=== PATIENT | male | born 1955 | race Caucasian/White ===

== ENCOUNTER 2018-12-10 07:26 | Day surgery (SDC) | payer OTHER ==
[~2018-12-10] VITALS: Ht 160 cm; Wt 73.0 kg
[2018-12-10] MEDS ORDERED: METF850T PO (09:23)
[2018-12-10] MEDS ORDERED: CYCL10TA13 PO (09:25)
[2018-12-10] MEDS ORDERED: INSULIN REGULAR, HUMAN 100 UNIT/ML VIAL SUBQ ONE (09:50)
[2018-12-10] MEDS ORDERED: INSULIN REGULAR, HUMAN 100 UNIT/ML VIAL SUBQ SCH (09:53)
[2018-12-10] MEDS ORDERED: fentaNYL 0.05 MG/ML VIAL ONE (11:14)
[2018-12-10] MEDS ORDERED: MIDAZOLAM 2 MG/2 ML VIAL ONE (11:14)
[2018-12-10] MEDS ORDERED: MIDAZOLAM 2 MG/2 ML VIAL IVP ONE (15:15)
== END 2018-12-10 12:00 | disposition home or self-care (01) ==
LOC: MDS 07:26 → MMU 07:44 → MDS 12:00
PROVIDERS: ATTEND Internal Medicine Gastroenterology
DX: K31.9 Disease of stomach and duodenum, unspecified (principal); E11.9 Type 2 diabetes mellitus without complications; E66.3 Overweight; Z79.899 Other long term (current) drug therapy; Z68.28 Body mass index [BMI] 28.0-28.9, adult; Z79.84 Long term (current) use of oral hypoglycemic drugs
CPT/HCPCS: 36415; 43239; 86677; J2250; J3010